=== PATIENT | male | born 1980 | race Caucasian/White ===

== ENCOUNTER 2018-09-16 14:28 | Emergency (ER) | payer BC ==
[2018-09-16] MEDS: PERCOCET 5MG/325MG TAB PO (15:21)
[2018-09-16] MEDS: ADACEL/BOOSTRIX VACCINE (DIPHTH/PERTUSS/ACELL/TETANUS)0.5ML SYR (90715) IM (15:21)
[2018-09-16] MEDS: AUGMENTIN 875 MG TAB PO (16:46)
== END 2018-09-16 17:04 | disposition home or self-care (01) ==
LOC: M ED 14:28
DX: S62.607B Fracture of unspecified phalanx of left little finger, initial encounter for open fracture (principal); W54.0XXA Bitten by dog, initial encounter; Y92.009 Unspecified place in unspecified non-institutional (private) residence as the place of occurrence of the external cause
CPT/HCPCS: 90715